=== PATIENT | male | born 1995 ===

== ENCOUNTER 2018-01-26 21:02 | Emergency (ER) | payer SELFPAY ==
[2018-01-26 21:10] VITALS: TEMP 97.9
--- NOTE | 2018-01-26 22:00 | ED PDOC ---
HPI: CCC, URI, Sore Throat Time Seen by Provider: 01/26/18 21:22 Chief Complaint (Nursing): ENT Problem Chief Complaint (Provider): ENT Problem History Per: Patient History/Exam Limitations: no limitations Current Symptoms Are (Timing): Better Additional Complaint(s): Roberto Abad is a 22 year old male with no past medical history, who presents to the emergency department complaining of having 2 nose bleeds today. 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 Pt currently taking methotraxate PO, mercaptopurine PO and vincristine IV for leukemia. PMD: No provider Past Medical History Reviewed: Historical Data, Nursing Documentation, Vital Signs Vital Signs: Last Vital Signs Temp 97.9 F 01/26/18 21:08 Pulse 82 01/26/18 21:08 Resp 20 01/26/18 21:08 BP 136/85 01/26/18 21:08 Pulse Ox 99 01/26/18 21:08 - Medical History PMH: No Chronic Diseases - Surgical History Surgical History: No Surg Hx - Family History Family History: States: Unknown Family Hx - Immunization History Hx Tetanus Toxoid Vaccination: No Hx Influenza Vaccination: No Hx Pneumococcal Vaccination: No - Home Medications Home Medications: Ambulatory Orders Medication Instructions Recorded Cefepime IV 2 gm in Dextrose 2 gm IV Q8 5 Days bag 03/14/16 [Maxipime IV 2 gm Premix] Doxycycline Oral Susp [Vibramycin] 100 mg IV Q12 5 Days ml 03/14/16 Itraconazole [Onmel] 200 mg PO BID #10 tab 03/14/16 metroNIDAZOLE 500mg/100ml NS 500 mg IVPB Q8 5 Days bag 03/14/16 [Flagyl 500MG/100ML NS] - Allergies Allergies/Adverse Reactions: Allergies Allergy/AdvReac Type Severity Reaction Status Date / Time No Known Allergies Allergy Verified 01/19/16 18:31 Review of Systems ROS Statement: Except As Marked, All Systems Reviewed And Found Negative ENT: Positive for: Other (nose bleed ) Physical Exam - Reviewed Nursing Documentation Reviewed: Yes Vital Signs Reviewed: Yes - Physical Exam Appears: Positive for: Non-toxic, No Acute Distress Head Exam: Positive for: ATRAUMATIC, NORMOCEPHALIC Skin: Positive for: Normal Color Eye Exam: Positive for: Normal appearance ENT: Positive for: Other (Dry blood in nose) Neck: Positive for: Normal Cardiovascular/Chest: Positive for: Regular Rate, Rhythm. Negative for: Bradycardia, Tachycardia Respiratory: Positive for: Normal Breath Sounds. Negative for: Accessory Muscle Use, Respiratory Distress Back: Positive for: Normal Inspection Extremity: Positive for: Normal ROM Neurologic/Psych: Positive for: Alert, Oriented - Laboratory Results Result Diagrams: 01/26/18 22:36 01/26/18 22:36 - ECG O2 Sat by Pulse Oximetry: 99 (RA) Pulse Ox Interpretation: Normal Medical Decision Making Medical Decision Making: Time: 21:55 Plan: --Provider instructed patient the proper method to stop and pinch a nose bleed. --Advised to apply vasoline and buy a humidifier to prevent it in the future. Pt taking methotraxate PO and mercaptopurine PO - Adverse reaction is thrombocytopenia. Scribe Attestation: Documented by Bernardino Todd, acting as a scribe for Marie Blue PA-C Provider Scribe Attestation: All medical record entries made by the Scribe were at my direction and personally dictated by me. I have reviewed the chart and agree that the record accurately reflects my personal performance of the history, physical exam, medical decision making, and the department course for this patient. I have also personally directed, reviewed, and agree with the discharge instructions and disposition. Disposition - Clinical Impression Clinical Impression: Epistaxis - Patient ED Disposition Is Patient to be Admitted: No Counseled Patient/Family Regarding: Diagnosis, Need For Followup - Disposition Referrals: Turner Collazo MD [Staff Provider] - Beny Lowe MD [Staff Provider] - Disposition: Routine/Home Disposition Time: 22:54 Condition: GOOD Instructions: Nosebleeds (DC) Forms: [employer] (Thai)
[2018-01-26 22:48] LABS: BASO % 0.8 % (0.0-2.0); EOS # 0.1 K/uL (0.0-0.7); HEMOGLOBIN 14.4 g/dL (12.0-18.0); LYMPH # 0.9 K/uL (1.0-4.3); LYMPH % 29.7 % (20.0-40.0); MEAN CELL VOLUME 91.5 fl (80.0-94.0); MEAN CORPUSCULAR HEMOGLOBIN 30.2 pg (27.0-31.0); MEAN PLATELET VOLUME 7.8 fl (7.2-11.7); MONO # 0.3 K/uL (0.0-0.8); MONO % 10.1 % (0.0-10.0); NEUT # 1.8 K/uL (1.8-7.0); NEUT % 57.4 % (50.0-75.0); NRBC % 0.1 % (0.0-0.0); RBC 4.76 Mil/uL (4.40-5.90); WHITE BLOOD COUNT 3.1 K/uL (4.8-10.8)
[2018-01-26 22:50] LABS: ALB/GLOB RATIO 1.3 (1.0-2.1); ALBUMIN 4.3 g/dL (3.5-5.0); ALT/SGPT 36 U/L (21-72); AST/SGOT 33 U/L (17-59); BLOOD UREA NITROGEN 16 mg/dl (9-20); CALCIUM 9.2 mg/dL (8.4-10.2); GFR NON-AFRICAN AMERICAN > 60
[2018-01-26 22:59] LABS: INR 1.1; PROTHROMBIN TIME 12.9 Seconds (9.8-13.1)
[2018-01-26 23:02] LABS: PARTIAL THROMBOPLASTIN TIME 37.4 Seconds (25.6-37.1)
[2018-01-26 23:32] VITALS: BP 138/78; PULSE 88; RESP 18; O2SAT 100
== END 2018-01-26 23:32 | disposition home or self-care (01) ==
LOC: EDBD 21:02 → H.ER 21:02
DX: R04.0 Epistaxis (principal); D69.6 Thrombocytopenia, unspecified